=== PATIENT | male | born 1935 | race Two or more races ===

== ENCOUNTER 2020-03-19 17:33 | Inpatient (IN) | payer MEDICARE, OTHER ==
[~2020-03-19] VITALS: Ht 170.2 cm; Wt 76.1 kg
[2020-03-19 18:38] LABS: Basophils # (auto) 0 10 ^3/uL (0-0.2); Eosinophils # (auto) 0 10 ^3/uL (0-0.8); Eosinophils % (auto) 0.2 % (0.0-7.0); Lymphocytes # (auto) 0.6 10 ^3/uL (0.4-5.4); Mean Corpuscular Volume 83.8 fL (80.0-100.0)
[2020-03-19 18:40] LABS: Basophils % (auto) 0.2 % (0.0-2.0); Hematocrit 15.7 % (41.0-53.0); Lymphocytes % (auto) 9.1 % (10.0-50.0); Mean Corpuscular Hemoglobin 24.6 pg (28.0-32.0); Mean Corpuscular Hgb Conc. 29.3 g/dL (32.0-36.0); Monocytes # (auto) 0.4 10 ^3/uL (0-1.3); Monocytes % (auto) 5.2 % (0.0-12.0); Neutrophils # (auto) 5.9 10 ^3/uL (1.6-8.6); Neutrophils % (auto) 85.3 % (37.0-80.0); Nucleated Red Blood Cells % 0.1 %; Platelet Count (auto) 249 10^3/uL (140-450); Red Blood Cells 1.88 10^6/uL (4.5-5.90); Red Cell Distribution Width 17.5 % (11.8-14.3); White Blood Cell 6.9 10^3/uL (4.4-10.8)
[2020-03-19 18:45] LABS: Hemoglobin 4.6 g/dL (13.5-17.5)
[2020-03-19 19:07] LABS: Albumin 3.5 g/dL (3.4-5.0); Calcium 8.7 mg/dL (8.5-10.1); Potassium 5.4 mmol/L (3.5-5.1)
[2020-03-19 19:09] LABS: Lactic Acid w/Reflex 6.1 mmol/L (0.4-2.0)
[2020-03-19 19:14] LABS: BUN/Creatinine Ratio 25.5; Bilirubin, Total 0.3 mg/dL (0.2-1.0); Total Protein 6.5 g/dL (6.4-8.2)
[2020-03-19] MEDS ORDERED: FUROSEMIDE 20 MG/2 ML VIAL IV ONE (20:00)
[2020-03-19 20:01] LABS: INR 1.13 (0.9-1.15); Partial Thromboplastin Time 23.2 sec (23.0-31.2)
[2020-03-19] MEDS ORDERED: PANTOPRAZOLE 40mg/50ML NS AE 50 ML IV ONE (20:45)
[2020-03-19] MEDS ORDERED: PANTOPRAZOLE 40 MG/10 ML VIAL INJ IV ONE (20:45)
[2020-03-19] MEDS ORDERED: SODIUM CHLORIDE 0.9% 1,000 ML IV ONE (21:15)
[2020-03-19 21:33] VITALS: BP 152/54
[2020-03-19] MEDS ORDERED: ONDANSETRON HCL 4 MG/2 ML VIAL IV PRN (21:45)
[2020-03-19] MEDS ORDERED: SODIUM ZIRCONIUM CYCL 10 GM PAK PO ONE (21:45)
[2020-03-19] MEDS ORDERED: NITROGLYCERIN 0.4 MG SL TAB SL PRN (21:45)
[2020-03-19] MEDS ORDERED: DEXTROSE (50%) 50ML SYRG IV PRN (21:45)
[2020-03-19] MEDS ORDERED: MORPHINE SULF INJ 2 MG/ML SYRINGE 1ML IV PRN (21:45)
[2020-03-19 21:47] VITALS: BP 152/62
[2020-03-19] MEDS ORDERED: PIPERACILLIN-TAZOB 3.375GM 100 ML IV ONE (22:00)
[2020-03-19] MEDS ORDERED: VANCOMYCIN 1GM/250ML 250 ML IV ONE (22:00)
[2020-03-19] MEDS ORDERED: levoFLOXacin 250MG 50 ML IV ONE (22:45)
--- NOTE | 2020-03-19 23:05 | NUR ---
Telemetry admit from [facility] admitted to Telemetry unit after SBAR received. Patient oriented to BARBARA TEMPLETON RN primary RN, unit, room, bed, and unit policies regarding patient care and visiting hours. Patient now on continuous telemetry monitoring, tele box # 5 and telemetry reading on arrival to unit is SR 69. Patient placed on bedside oxygen, weighed by bedscale and encouraged to call if they need something. All questions and concerns addressed, patient verbalized understanding. bed in low position and call light within reach.
[2020-03-19 23:10] VITALS: BP 145/74
[2020-03-19 23:38] LABS: Urine Bacteria NONE SEEN /hpf (None Seen); Urine Blood Negative /uL (Negative); Urine Hyaline Cast FEW /lpf (0 - 2); Urine Specific Gravity 1.012 (1.001-1.035); Urine WBC 1 /hpf (0 - 3)
[2020-03-19] MEDS: ATORVASTATIN 20 MG TAB PO SCH (23:39)
--- NOTE | 2020-03-19 23:53 | NUR ---
IV insertion IV access obtained, via clean sterile technique by inserting 20 gauge catheter at left AC after 1 attempt. IV secured properly. No trauma to site. Patient tolerated well.
[2020-03-20] VITALS (16 sets, daily range): BP systolic 142–174; BP diastolic 50–99
--- NOTE | 2020-03-20 00:05 | NUR ---
Transfusion ended 0006 vs taken. no allergic reaction noted or reported by patient. patient reports no signs of sob distress or pain.patient tolerated transfusion well.
[2020-03-20] MEDS: ACCU-CHEK COMFORT CURVE STRIP VI SCH ×4 (00:32→18:15)
[2020-03-20] MEDS: InsuLIN REG 1unit/0.01ml Soln (100units/ml) SC SCH ×4 (00:32→18:00)
--- NOTE | 2020-03-20 00:38 | NUR ---
home medications Called kate john phone number [phone], per patient request. to obtain list of home medication. Message was left as no one answered. will endorse care to dayshift RN if unable to obtain.
--- NOTE | 2020-03-20 01:10 | NUR ---
blood transfusion blood transfusion started. patient was educated on benefits and risks patient verbalized understanding. Patient verbalized understanding on side effects. VS taken.
--- NOTE | 2020-03-20 01:25 | NUR ---
blood transfusion 15min vs taken, no allergic reaction noted or reported. patient reports no signs of sob distress or pain.
--- NOTE | 2020-03-20 02:00 | NUR ---
patient resting in bed denies sob distress or pain.
--- NOTE | 2020-03-20 03:49 | NUR ---
blood transfusion ended. vs taken. patient denies sob distress or pain. no allergic reaction noted or reported by patient.
[2020-03-20 05:38] LABS: Basophils # (auto) 0 10 ^3/uL (0-0.2); Eosinophils # (auto) 0 10 ^3/uL (0-0.8); Mean Corpuscular Volume 81.8 fL (80.0-100.0)
[2020-03-20] MEDS: FUROSEMIDE 20 MG/2 ML VIAL IV SCH ×2 (05:38→18:33)
[2020-03-20 05:42] LABS: Basophils % (auto) 0.1 % (0.0-2.0); Eosinophils % (auto) 0.5 % (0.0-7.0); Hematocrit 18.8 % (41.0-53.0); Lymphocytes % (auto) 15.7 % (10.0-50.0); Mean Corpuscular Hemoglobin 26.8 pg (28.0-32.0); Mean Corpuscular Hgb Conc. 32.8 g/dL (32.0-36.0); Monocytes # (auto) 0.5 10 ^3/uL (0-1.3); Monocytes % (auto) 7.6 % (0.0-12.0); Neutrophils # (auto) 4.9 10 ^3/uL (1.6-8.6); Neutrophils % (auto) 76.1 % (37.0-80.0); Nucleated Red Blood Cells % 0.1 %; Platelet Count (auto) 200 10^3/uL (140-450); Red Cell Distribution Width 17.4 % (11.8-14.3); White Blood Cell 6.4 10^3/uL (4.4-10.8)
[2020-03-20 05:50] LABS: Hemoglobin 6.2 g/dL (13.5-17.5)
[2020-03-20 06:00] LABS: Potassium 4.5 mmol/L (3.5-5.1)
--- NOTE | 2020-03-20 06:04 | NUR ---
Spoke with hospitalist Chandu notified hospitalist of critical hgb 6.2. new orders received orders read back and verified by MELBA Schofield.
[2020-03-20 06:16] LABS: Albumin 3.3 g/dL (3.4-5.0); BUN/Creatinine Ratio 29.5; Bilirubin, Total 0.5 mg/dL (0.2-1.0); Calcium 8.6 mg/dL (8.5-10.1); Total Protein 6.2 g/dL (6.4-8.2)
[2020-03-20] MEDS: PANTOPRAZOLE 40mg/50ML NS AE 50 ML IV SCH ×4 (06:59→22:08)
--- NOTE | 2020-03-20 07:00 | NUR ---
Report given to miryam Rivas. patient is to be transferred to room 294B.
--- NOTE | 2020-03-20 07:01 | NUR ---
Per yinka in tele monitor she will send telebox when available currently in shift change.
--- NOTE | 2020-03-20 07:13 | NUR ---
PATIENT TO ROOM 294B FROM 235 Patient is alert and oriented x4, no signs of distress noted, patient denies pain and shortness of breath. He was updated on the plan of care and verbalized understanding. Bed is locked, in the lowest position, side rails up x2 and call light is in reach. He was encouraged to call for assistance as needed.
--- NOTE | 2020-03-20 07:13 | NUR ---
patient transferred to room 294B denies sob distress or pain. all belongings taken with patient. norma comer notified
--- NOTE | 2020-03-20 08:34 | NUR ---
BLOOD TRANSFUSION STARTED. double checked by two RN per protocol. Starting vitals : temp97.9, HR 64, BP 149.65, RR 17, O2 sat 100% on 2L/min via nasal cannula.
[2020-03-20] MEDS ORDERED: levoFLOXacin 250MG 50 ML IV SCH (10:00)
[2020-03-20] MEDS ORDERED: PANTOPRAZOLE 40 MG/10 ML VIAL INJ IV SCH (10:00)
--- NOTE | 2020-03-20 12:09 | NUR ---
BLOOD TRANSFUSION ENDED 300ml transfused, patient tolerated well.
[2020-03-20 13:58] LABS: Hematocrit 22.5 % (41.0-53.0); Hemoglobin 7.3 g/dL (13.5-17.5)
--- NOTE | 2020-03-20 14:03 | NUR ---
PAGED regarding patient hgb 7.3 post transfusion, MD aware, no new orders received.
--- NOTE | 2020-03-20 14:50 | NUR ---
CALL FROM updated on the patient status. New order for one unit PRBC. Order read back and verified.
[2020-03-20] MEDS ORDERED: IPRATROPIUM BROM 0.5 MG/2.5ML INH SOL NEB PRN (15:00)
[2020-03-20] MEDS ORDERED: ALBUTEROL SULF 2.5 MG/0.5ML(0.5%) NEB SOLN NEB PRN (15:00)
--- NOTE | 2020-03-20 15:23 | NUR ---
PT REQUESTED THAT P.T. EVALUATION BE DONE TOMORROW.
--- NOTE | 2020-03-20 19:30 | NUR ---
OPENING SHIFT NOTE Assumed care of patient who is A&Ox4. Patient's primary language is Upper Sorbian. Currently on 2L NC with no s/s of distress. Denies pain at this time. PIV in right A/C is intact and patent. PRBC currently transfusing. No s/s of allergic reaction noted or reported by patient. PIV in left A/C intact and patent. Currently infusing Protonix as ordered. PIV in right forearm intact and patent. Flushed with 10ml NS. 3+ pitting edema noted to BLE. Bed is in low locked position with side rails up x2. Call light is within reach and patient encouraged to call for assistance when needed. Will continue to monitor for changes PRN.
--- NOTE | 2020-03-20 19:33 | NUR ---
PT ASSESSED FOR PRN MED NEB TX. SPO2 98% ON 2L NC, HR 61. NO RESPIRATORY DISTRESS NOTED. NO TX INDICATED. WILL CONTINUE TO MONITOR.
[2020-03-20] MEDS: SUCRALFATE 1 GM/10 ML ORAL SUSP PO SCH (22:00)
[2020-03-20] MEDS: ATORVASTATIN 20 MG TAB PO SCH (22:00)
--- NOTE | 2020-03-20 22:30 | NUR ---
BLOOD PRESSURE Blood pressure measured and is 174/69 (map: 104), HR: 57. Patient reports a history of HTN, but is unable to recall home medications. Family has been contacted and will obtain a list of medications and send via fax. No antihypertensives ordered at this time. Will notify hospitalist.
--- NOTE | 2020-03-21 | NUR ---
HOSPITALIST Received call from Hospitalist Jaycob Schofield NP. New orders received. Read back and verified. Will follow through.
[2020-03-21] MEDS: ACCU-CHEK COMFORT CURVE STRIP VI SCH ×3 (00:18→12:36)
[2020-03-21] MEDS ORDERED: hydrALAZINE HCL 20 MG/ML VL IV ONE (00:30)
[2020-03-21] MEDS: PANTOPRAZOLE 40mg/50ML NS AE 50 ML IV SCH ×3 (03:05→14:22)
--- NOTE | 2020-03-21 04:37 | NUR ---
IV removal IV to right AC DC'd unintentionally by patient. Catheter fully intact. Pressure dressing applied to site. Patient tolerated well.
[2020-03-21 05:29] VITALS: BP 129/57
[2020-03-21] MEDS: FUROSEMIDE 20 MG/2 ML VIAL IV SCH (05:42)
[2020-03-21] MEDS: InsuLIN REG 1unit/0.01ml Soln (100units/ml) SC SCH ×3 (05:43→12:35)
[2020-03-21] MEDS: SUCRALFATE 1 GM/10 ML ORAL SUSP PO SCH ×4 (06:32→22:28)
[2020-03-21 07:23] LABS: Basophils # (auto) 0 10 ^3/uL (0-0.2); Eosinophils # (auto) 0.2 10 ^3/uL (0-0.8); Hemoglobin 9.4 g/dL (13.5-17.5); Monocytes # (auto) 0.5 10 ^3/uL (0-1.3)
[2020-03-21 07:26] LABS: Basophils % (auto) 0.4 % (0.0-2.0); Eosinophils % (auto) 3.6 % (0.0-7.0); Lymphocytes # (auto) 0.9 10 ^3/uL (0.4-5.4); Lymphocytes % (auto) 17.4 % (10.0-50.0); Mean Corpuscular Hemoglobin 26.6 pg (28.0-32.0); Mean Corpuscular Hgb Conc. 32.4 g/dL (32.0-36.0); Mean Corpuscular Volume 82.2 fL (80.0-100.0); Monocytes % (auto) 10.3 % (0.0-12.0); Neutrophils # (auto) 3.4 10 ^3/uL (1.6-8.6); Neutrophils % (auto) 68.3 % (37.0-80.0); Nucleated Red Blood Cells % 0.4 %; Platelet Count (auto) 219 10^3/uL (140-450); Red Blood Cells 3.53 10^6/uL (4.5-5.90); Red Cell Distribution Width 17.3 % (11.8-14.3)
[2020-03-21 07:43] LABS: Albumin 3.3 g/dL (3.4-5.0); Calcium 8.8 mg/dL (8.5-10.1); Magnesium 1.8 mg/dL (1.6-2.6); Potassium 4.3 mmol/L (3.5-5.1)
[2020-03-21 07:49] LABS: BUN/Creatinine Ratio 20.6; Bilirubin, Total 0.6 mg/dL (0.2-1.0); Total Protein 6.4 g/dL (6.4-8.2)
[2020-03-21 09:00] VITALS: BP 144/54
[2020-03-21 12:47] VITALS: BP 146/58
--- NOTE | 2020-03-21 13:12 | NUR ---
Respiratory note: PT ASSESSED FOR PRN MEDNEB. PT FOUND ON 2 LPM NC. SP02 98%, HR 51, RR 20. PT IN NO DISTRESS AT THIS TIME. NO INDICATION FOR TX. PT AWARE TO HAVE RT PAGED IF SOB.
[2020-03-21] MEDS ORDERED: MAGNESIUM SULFATE 1GM/100ML 100 ML IV ONE (15:00)
[2020-03-21] MEDS ORDERED: BENA40TA7 PO (15:17)
[2020-03-21] MEDS ORDERED: TRAM50TA2 PO (15:17)
[2020-03-21] MEDS ORDERED: AMLO10TA13 PO (15:17)
[2020-03-21] MEDS ORDERED: ATOR40TA52 PO (15:17)
[2020-03-21] MEDS ORDERED: PIOG1TAB37 PO (15:17)
[2020-03-21] MEDS ORDERED: ASPI-543 PO (15:17)
[2020-03-21] MEDS ORDERED: FEBU80TA3 PO (15:17)
--- NOTE | 2020-03-21 15:18 | NUR ---
needed patient home meds. Patient unable to tell us because eddie does not remember. Patient asked me to call his daughter Ruthie. The daughter was able to provide patient's full medication list.
--- NOTE | 2020-03-21 15:40 | NUR ---
Spoke to to let her know that I spoke to patient's daughter who had some questions. She wanted to know if patient will have a colonoscopy. said she is waiting on recommendations. I also mentioned to that patient has been having occasional PVC's,PAC's,Bigeminy,Trigeminy and when he sleep goes to sinus georgi in the high 50's. But other than that he goes back to Sinus Rhythm. aware. Addendum: 03/21/20 at 1852 by YG WRIGHT RN RN also gave me the order to put patient NPO after midnight because it is possible that will do the colonoscopy and tomorrow morning patient might to start bowel prep.
[2020-03-21 16:43] VITALS: BP 163/62
--- NOTE | 2020-03-21 19:55 | NUR ---
OPENING SHIFT NOTE Assumed care of patient who is A&O x4. Currently on 1L NC with no s/s of distress. Denies pain at this time. PIV in left forearm is intact and patent. Flushed with 10ml NS. POC discussed and patient verbalizes understanding. Patient to be kept NPO beginning at 0000 for possible endoscopy tomorrow, 03/22/[address] Cohen. Bed is in low locked position with side rails up x2. Call light is within reach and patient encouraged to call for assistance when needed. Will continue to monitor for changes PRN.
[2020-03-21] MEDS: hydrALAZINE HCL 25 MG TAB PO SCH (22:00)
[2020-03-21] MEDS: PANTOPRAZOLE 40 MG/10 ML VIAL INJ IV SCH (22:28)
[2020-03-21 23:34] VITALS: BP 135/65
[2020-03-22 04:58] LABS: Hematocrit 32.5 % (41.0-53.0); Hemoglobin 10.4 g/dL (13.5-17.5)
[2020-03-22 05:16] LABS: BUN/Creatinine Ratio 16.3; Calcium 8.6 mg/dL (8.5-10.1); Potassium 4.4 mmol/L (3.5-5.1)
[2020-03-22 05:24] VITALS: BP 143/52
[2020-03-22] MEDS: SUCRALFATE 1 GM/10 ML ORAL SUSP PO SCH ×4 (06:04→21:53)
[2020-03-22] MEDS: hydrALAZINE HCL 25 MG TAB PO SCH (06:04)
[2020-03-22 09:00] VITALS: BP 157/51
[2020-03-22] MEDS ORDERED: FUROSEMIDE 20 MG/2 ML VIAL IV SCH (10:00)
[2020-03-22] MEDS: PANTOPRAZOLE 40 MG/10 ML VIAL INJ IV SCH ×2 (10:03→21:53)
[2020-03-22] MEDS ORDERED: SODIUM CHLORIDE LOCK 10 ML ONE (11:07)
[2020-03-22] MEDS ORDERED: LIDOCAINE VISCOUS 2% 15ML UD ONE (11:07)
[2020-03-22] MEDS ORDERED: diphenhdrAMINE HCL 50 MG/1 ML VL ONE (11:08)
--- NOTE | 2020-03-22 11:50 | NUR ---
PT TAKEN TO GI LAB VIA BED. NO S/S OF DISTRESS.
--- NOTE | 2020-03-22 12:18 | NUR ---
Nutrition Assessment Note please see attached link for complete assessment Est Energy needs BW 74 [id number] kcals (23-25 kcal/kgBW), Est Protein needs: 59-74 gms/day (0.8-1.0 gm/kgBW r/t CKD elev RFT). Will continue to monitor and reassess prn. Addendum: 03/22/20 at [address] Amended: Links added.
--- NOTE | 2020-03-22 12:18 | NUR ---
Respiratory note: PT ASSESSED FOR PRN MED NEB. PT FOUND ON 3 LPM SP02 96%, HR 86, RR 20. PT DIMINISHED. NO S/S OF RESPIRATORY DISTRESS. NO INDICATION FOR TREATMENT AT THIS TIME. PT AWARE TO HAVE RT PAGED IF SOB. WILL CONTINUE TO MONITOR.
[2020-03-22] MEDS: fentaNYL CITRATE 100 MCG/2 ML VL ONE ×2 (12:43→12:46)
[2020-03-22] MEDS: MIDAZOLAM HCL 5 MG/ML-1ML VIAL ONE ×2 (12:43→12:46)
--- NOTE | 2020-03-22 13:57 | NUR ---
FWW AT BEDSIDE. DELIVERED BY [facility].
--- NOTE | 2020-03-22 15:45 | NUR ---
Assessment Patient is an 84-year-old male who is alert and oriented. Patient primary language is Samoan. Prior to admission patient lived home with family and functioned with assistance. Patient has a hospital bed and cane for home use. Patient will return home to his prior living arrangements post discharge and family will transport him home. Regarding social service consult for walker and home health safety evaluation, physical therapy, medication management and vitals. Patient advised me to contact his daughter Ruthie in regards of discharge plan. Informed patient he has the right to participate in all discharge planning. Patient verbalized understanding and agreed to discharge plan. Information and choice letter was given to patient daughter Ruthie. Ruthie requested [facility]. Faxed clinical information to [employer] and [facility]. Per Ronni with [facility] patient has been accepted and service to start within 24-48hrs upon d/c day. Per Ruthie Srinivasan order has been received and walker has been deliver to bedside. Addendum: 03/22/20 at 1556 by LISANDRO WILKS Amended: Links added.
[2020-03-22 17:00] VITALS: BP 148/59
--- NOTE | 2020-03-22 17:56 | NUR ---
PATIENT IS AMBULATING 500 FEET. D/C FROM P.T. NURSING TO ASSIST PATIENT NEEDED.
--- NOTE | 2020-03-22 19:22 | NUR ---
Respiratory note: ASSESSED PT FOR PRN MED NEB AT THIS TIME, NO RESP DISTRESS NOTED, NO TX INDICATED. PULSE OX 98% ON RA, HR 83, RR 18, BILATERAL BS CLEAR
--- NOTE | 2020-03-22 19:35 | NUR ---
OPENING SHIFT NOTE Assumed care of patient who is A&O x4. Currently on RA with no s/s of distress. Denies pain at this time. PIV in left wrist is intact and patent. Flushed with 10ml NS. Patient is s/p EGD today with Sybil Cohen. 4WW at bedside. Bed is in low locked position with side rails up x2. Call light is within reach and patient encouraged to call for assistance when needed. Will continue to monitor for changes PRN.
[2020-03-22 23:56] VITALS: BP 142/66
[2020-03-23] VITALS (7 sets, daily range): BP systolic 134–153; BP diastolic 51–67
[2020-03-23] MEDS: SUCRALFATE 1 GM/10 ML ORAL SUSP PO SCH ×4 (06:14→21:20)
[2020-03-23] MEDS: amLODIPine BESYLATE 5 MG TAB PO SCH (10:37)
[2020-03-23] MEDS: PANTOPRAZOLE 40 MG/10 ML VIAL INJ IV SCH ×2 (10:37→21:20)
--- NOTE | 2020-03-23 12:35 | NUR ---
DR. RIVERA IN TO SEE PT.
--- NOTE | 2020-03-23 18:50 | NUR ---
Respiratory note: NO PRN TX GIVEN AT THIS TIME, NOT INDICTAED. PT IS AWAKE, TALKING ON THE PHONE, ALGERIAN SPEAKING ONLY. SPO2 97% ON RA, HR 56, RR 20. BREATH SOUNDS CLEAR/DIMINISHED THROUGHOUT. NO DISTRESS NOTED.
[2020-03-24] MEDS: SUCRALFATE 1 GM/10 ML ORAL SUSP PO SCH ×4 (05:48→21:30)
--- NOTE | 2020-03-24 07:05 | NUR ---
PT RESTED WELL WITH NO DISTRESS OBSERVED;CALL LIGHT IN REACH.
--- NOTE | 2020-03-24 07:45 | NUR ---
Respiratory note: PT ASSESSED FOR PRN MED NEB. PT IS FILIPINO SPEAKING. B/S ARE DIMINISHED. NO S/S OF RESPIRATORY DISTRESS. SPO2 95, HR 99, RR 22. NO INDICATION FOR TREATMENT AT THIS TIME. PT AWARE TO HAVE RT PAGED IF NEEDED.
[2020-03-24 09:00] VITALS: BP 155/68
[2020-03-24] MEDS: amLODIPine BESYLATE 5 MG TAB PO SCH (09:24)
[2020-03-24] MEDS: PANTOPRAZOLE 40 MG/10 ML VIAL INJ IV SCH ×2 (09:26→21:30)
[2020-03-24] MEDS: hydrALAZINE HCL 25 MG TAB PO PRN (09:39)
--- NOTE | 2020-03-24 11:19 | NUR ---
Nutrition Followup Note Wt 74.5kg Pt was sleeping with no family at bedside at time of rounds. Pt is with full liquid diet advanced on 03/22 per Md order. Pt is with a good appetite aeb pt with 100% po intake x 2 days per RN note Est Energy needs BW 74 [id number] kcals (23-25 kcal/kgBW), Est Protein needs: 59-74 gms/day (0.8-1.0 gm/kgBW r/t CKD elev RFT). Will continue to monitor and reassess prn. Labs: BUn 22H, Creat 1.35H, Alb 3.3L, GLUC 140H BM: PT with 2 BMs 03/23 per Rn note Skin: BS 23 low risk, full details in career services officer note PES: Altered nutrition related lab values r.t current chronic medical condition aeb elev RFT MILD HYPOALB Comments 1) Continue to advance diet as medically feasible 2) refer to CDE oN DC 3) continue current plan of care Expected Outcomes/Goals: pt will have improved labs F/u mod 3-5 days
[2020-03-24] MEDS ORDERED: MAGNESIUM CITRATE SOLUTION 300 ML BTL PO ONE (12:30)
[2020-03-24 13:00] VITALS: BP 129/51
[2020-03-24 17:00] VITALS: BP 120/52
--- NOTE | 2020-03-24 19:40 | NUR ---
Opening Shift Note Assumed care of patient, awake and alert. No S/S of distress/SOB or pain. Instructed on POC and to call for assist PRN. Bed in lowest locked position, call light within reach, side rails up x2, fall precautions in place. Will continue to monitor for changes Q1hr and PRN.
[2020-03-24 21:50] VITALS: BP 138/51
[2020-03-25 05:20] VITALS: BP 166/66
[2020-03-25] MEDS: hydrALAZINE HCL 25 MG TAB PO PRN (05:32)
[2020-03-25] MEDS: SUCRALFATE 1 GM/10 ML ORAL SUSP PO SCH ×3 (06:36→16:46)
--- NOTE | 2020-03-25 06:37 | NUR ---
PRN [place] TX NOT INDICATED AT THIS TIME. PT IS AWAKE, ALERT AND ORIENTED. PT ON RA. 96% O2 SATS, HR 62 BPM, RR19 BPM, BS ARE BIBASILARLY DIMINISHED TO AUSCULTATION, SKIN IS WARM AND DRY TO THE TOUCH. RESPIRATION IS EVEN AND NONLABORED. NO SOB OR ANY OTHER RESPIRATORY DISTRESS NOTED. PT INSTRUCTED TO CALL IF [place] TX IS INDICATED. PT VERBALIZED UNDERSTANDING.
--- NOTE | 2020-03-25 07:00 | NUR ---
Opening Shift Note Assumed care of patient, awake and alert. No S/S of distress/SOB or pain. Instructed on POC and to call for assist PRN, will continue to monitor for changes Q1hr and PRN.
[2020-03-25 08:09] LABS: Basophils # (auto) 0 10 ^3/uL (0-0.2); Eosinophils # (auto) 0.2 10 ^3/uL (0-0.8); Lymphocytes # (auto) 0.9 10 ^3/uL (0.4-5.4); Mean Corpuscular Hgb Conc. 31.9 g/dL (32.0-36.0); Monocytes # (auto) 0.4 10 ^3/uL (0-1.3); Neutrophils # (auto) 1.8 10 ^3/uL (1.6-8.6); Neutrophils % (auto) 54.4 % (37.0-80.0)
[2020-03-25 08:11] LABS: Basophils % (auto) 0.9 % (0.0-2.0); Eosinophils % (auto) 5.2 % (0.0-7.0); Hematocrit 28.1 % (41.0-53.0); Lymphocytes % (auto) 26.4 % (10.0-50.0); Mean Corpuscular Hemoglobin 26.2 pg (28.0-32.0); Mean Corpuscular Volume 82.2 fL (80.0-100.0); Monocytes % (auto) 13.1 % (0.0-12.0); Nucleated Red Blood Cells % 0.1 %; Platelet Count (auto) 207 10^3/uL (140-450); Red Blood Cells 3.42 10^6/uL (4.5-5.90); Red Cell Distribution Width 17.4 % (11.8-14.3); White Blood Cell 3.3 10^3/uL (4.4-10.8)
[2020-03-25 08:29] LABS: Albumin 2.7 g/dL (3.4-5.0); Calcium 8.3 mg/dL (8.5-10.1); Potassium 4.3 mmol/L (3.5-5.1)
[2020-03-25 08:34] LABS: BUN/Creatinine Ratio 16.3; Bilirubin, Total 0.4 mg/dL (0.2-1.0); Total Protein 5.6 g/dL (6.4-8.2)
[2020-03-25 08:58] VITALS: BP 146/75
[2020-03-25] MEDS: amLODIPine BESYLATE 5 MG TAB PO SCH (10:48)
[2020-03-25] MEDS: PANTOPRAZOLE 40 MG/10 ML VIAL INJ IV SCH (10:48)
--- NOTE | 2020-03-25 11:50 | NUR ---
ROUNDS Dr Ceballos at bedside for rounds, new orders received and followed through. Translation in Ivorian provided by KATHERINE Reyes. Patient updated onplan of care, verbalized understanding.
[2020-03-25 13:00] VITALS: BP 149/58
[2020-03-25] MEDS ORDERED: SUCR1TAB22 PO (14:30)
[2020-03-25] MEDS ORDERED: AMLO10TA13 PO (14:30)
[2020-03-25] MEDS ORDERED: PANT40TA2 PO (14:30)
[2020-03-25] MEDS ORDERED: FER325T PO (14:41)
[2020-03-25 15:09] VITALS: BP 149/58
[2020-03-25 17:00] VITALS: BP 130/62
--- NOTE | 2020-03-25 17:10 | NUR ---
Discharge instructions given as ordered. Encourage to follow up with PMD as instructed. All questions and concerns addressed. Patient verbalized understanding. Medication reconciliation form completed and copy given to patient. IV removed with catheter intact, pressure dressing applied. Telemetry unit returned to ICU. Patient awaiting daughter Ruthie for transportation.
--- NOTE | 2020-03-25 18:50 | NUR ---
Patient taken to vehicle via wheelchair with all personal belongings, accompanied by staff and family member. No distress noted at time of departure.
== END 2020-03-25 18:20 | disposition home health service (06) | DRG 377 ==
LOC: ER 17:33 → TELE 21:46 → TELE-EAST 23:05 → TELE-WESTW 03-20 08:05
PROVIDERS: ADMIT Nurse Practitioner; ATTEND Internal Medicine Nephrology
PROC: 30230N1 Transfusion of Nonautologous Red Blood Cells into Peripheral Vein, Open Approach (ICD-10-PCS; principal; 2020-03-19)
PROC: 0DB68ZX Excision of Stomach, Via Natural or Artificial Opening Endoscopic, Diagnostic (ICD-10-PCS; 2020-03-22)
PROC: 0DB88ZX Excision of Small Intestine, Via Natural or Artificial Opening Endoscopic, Diagnostic (ICD-10-PCS; 2020-03-22)
DX: K29.81 Duodenitis with bleeding (principal); N17.0 Acute kidney failure with tubular necrosis; I50.33 Acute on chronic diastolic (congestive) heart failure; I13.0 Hypertensive heart and chronic kidney disease with heart failure and stage 1 through stage 4 chronic kidney disease, or unspecified chronic kidney disease; K25.4 Chronic or unspecified gastric ulcer with hemorrhage; D64.9 Anemia, unspecified; N18.30 Chronic kidney disease, stage 3 unspecified; E78.5 Hyperlipidemia, unspecified; E11.22 Type 2 diabetes mellitus with diabetic chronic kidney disease; J44.9 Chronic obstructive pulmonary disease, unspecified; K44.9 Diaphragmatic hernia without obstruction or gangrene; Z20.828 Contact with and (suspected) exposure to other viral communicable diseases; Z82.49 Family history of ischemic heart disease and other diseases of the circulatory system; Z87.891 Personal history of nicotine dependence
CPT/HCPCS: 36415; 36430; 43239; 71045; 74176; 80048; 80053; 80061; 81001; 82962; 83036; 83605; 83735; 83880; 84443; 84484; 85014; 85018; 85025; 85379; 85610; 85730; 86850; 86900; 86901; 86920; 87040; 87086; 87426; 93005; 93306; 96361; 96365; 96367; 96375; 97110; 97116; 97163; 97530; 99291; C9113; G0378; J1815; J2250; J2543

== ENCOUNTER → 2021-01-02 | Outpatient (CLI) | payer MEDICARE, OTHER ==
[~2021-01-02] MED LIST: AMLO-496 PO; ATOR40TA52 PO; BENA40TA8 PO; FEBU80TA3 PO; FER325T PO; PANT40TA2 PO; PIOG1TAB37 PO; SUCR1TAB22 PO; TRAM50TA2 PO
== END | disposition home or self-care (01) ==
LOC: XYW 10:30
PROVIDERS: ATTEND Internal Medicine
DX: I51.7 Cardiomegaly (principal); I70.0 Atherosclerosis of aorta; I10 Essential (primary) hypertension; J98.4 Other disorders of lung
CPT/HCPCS: 93306

== ENCOUNTER → 2024-03-29 | Outpatient (CLI) | payer MEDICARE, OTHER ==
[~2024-03-29] MED LIST changes: -AMLO-496 PO; +AMLO1TAB23 PO; +BENA40TA71 PO; -BENA40TA8 PO; -FEBU80TA3 PO; +FEBU80TA6 PO; -SUCR1TAB22 PO; +SUCR1TAB31 PO
== END | disposition home or self-care (01) ==
LOC: LAB 11:41
PROVIDERS: ATTEND Family Medicine
DX: Z12.11 Encounter for screening for malignant neoplasm of colon (principal)
CPT/HCPCS: 82270

== ENCOUNTER → 2024-04-03 | Outpatient (CLI) | payer MEDICAID, OTHER ==
[2024-04-03 08:50] LABS: Urine Bacteria None Seen /hpf (None Seen)
[2024-04-03 09:24] LABS: Eosinophils % (auto) 2.1 % (0.0-7.0)
[2024-04-03 09:33] LABS: Urine Blood Negative /uL (Negative); Urine Clarity Clear (Clear); Urine Color Yellow (Yellow); Urine Protein, UAD 2+ (Negative); Urine Specific Gravity 1.018 (1.001-1.035); Urine Urobilinogen 2 mg/dL (Negative); Urine WBC 1 /hpf (0 - 3); Urine pH 5.5 (5.0-9.0)
[2024-04-03 09:38] LABS: Basophils # (auto) 0 10 ^3/uL (0-0.2); Basophils % (auto) 0.5 % (0.0-2.0); Eosinophils # (auto) 0.1 10 ^3/uL (0-0.8); Hematocrit 42.4 % (41.0-53.0); Hemoglobin 14.4 g/dL (13.5-17.5); Lymphocytes # (auto) 1.6 10 ^3/uL (0.4-5.4); Lymphocytes % (auto) 31.6 % (10.0-50.0); Mean Corpuscular Volume 97.1 fL (80.0-100.0); Monocytes # (auto) 0.4 10 ^3/uL (0-1.3); Monocytes % (auto) 7.8 % (0.0-12.0); Neutrophils # (auto) 2.9 10 ^3/uL (1.6-8.6); Nucleated Red Blood Cells % 0.1 %; Platelet Count (auto) 211 10^3/uL (140-450); Red Blood Cells 4.36 10^6/uL (4.5-5.90); Red Cell Distribution Width 13.8 % (11.8-14.3)
[2024-04-03 09:47] LABS: Alanine Aminotransferase 15 U/L (7-40); Albumin 4.2 g/dL (3.2-4.8); Alkaline Phosphatase 84 U/L (46-116); Anion Gap 7 (5-15); Aspartate Aminotransferase 19 U/L (13-40); BUN/Creatinine Ratio 13.4 (10.0-20.0); Bilirubin, Total 0.8 mg/dL (0.2-1.0); Blood Urea Nitrogen 17 mg/dL (9-23); Calcium 10.1 mg/dL (8.7-10.4); Carbon Dioxide 25 mmol/L (20-31); Chloride 106 mmol/L (98-107); Cholesterol 149 mg/dL (< 200); Glucose 137 mg/dL (74-106); HDL Cholesterol 71 mg/dL (40-59); LDL Cholesterol 56 mg/dL (< 100); Potassium 4.6 mmol/L (3.5-5.1); Sodium 138 mmol/L (136-145); Triglycerides 121 mg/dL (< 150)
[2024-04-03 11:12] LABS: Uric Acid 6.2 mg/dL (3.7-9.2)
== END | disposition home or self-care (01) ==
LOC: LAB 08:36
PROVIDERS: ATTEND Family Medicine
DX: I10 Essential (primary) hypertension (principal); Z12.5 Encounter for screening for malignant neoplasm of prostate; E78.5 Hyperlipidemia, unspecified; F03.90 Unspecified dementia, unspecified severity, without behavioral disturbance, psychotic disturbance, mood disturbance, and anxiety; Z87.39 Personal history of other diseases of the musculoskeletal system and connective tissue
CPT/HCPCS: 36415; 80053; 80061; 81001; 83036; 83540; 84153; 84443; 84550; 85025

== ENCOUNTER → 2024-08-09 | Outpatient (CLI) | payer MEDICAID, OTHER ==
[2024-08-09 07:57] LABS: Urine Bacteria None Seen /hpf (None Seen)
[2024-08-09 08:15] LABS: Urine Blood TRACE /uL (Negative); Urine Clarity Clear (Clear); Urine Color Light-Yellow (Yellow); Urine Protein, UAD 1+ (Negative); Urine Specific Gravity 1.017 (1.001-1.035); Urine Squamous Epithelial Cell FEW /hpf (<5); Urine Urobilinogen Normal (Negative); Urine WBC < 1 /HPF (0-3); Urine pH 5.5 (5.0-9.0)
[2024-08-09 08:27] LABS: Basophils # (auto) 0 10 ^3/uL (0-0.2); Basophils % (auto) 0.6 % (0.0-2.0); Eosinophils # (auto) 0.1 10 ^3/uL (0-0.8); Eosinophils % (auto) 2.1 % (0.0-7.0); Hematocrit 39.5 % (41.0-53.0); Hemoglobin 13.6 g/dL (13.5-17.5); Lymphocytes # (auto) 1.8 10 ^3/uL (0.4-5.4); Lymphocytes % (auto) 34.4 % (10.0-50.0); Mean Corpuscular Hemoglobin 33.4 pg (28.0-32.0); Mean Corpuscular Hgb Conc. 34.5 g/dL (32.0-36.0); Monocytes # (auto) 0.4 10 ^3/uL (0-1.3); Monocytes % (auto) 8.6 % (0.0-12.0); Neutrophils # (auto) 2.8 10 ^3/uL (1.6-8.6); Neutrophils % (auto) 54.3 % (37.0-80.0); Platelet Count (auto) 173 10^3/uL (140-450); Red Blood Cells 4.08 10^6/uL (4.5-5.90); Red Cell Distribution Width 13.9 % (11.8-14.3); White Blood Cell 5.1 10^3/uL (4.4-10.8)
[2024-08-09 08:32] LABS: Alanine Aminotransferase 13 U/L (7-40); Albumin 4.7 g/dL (3.2-4.8); Alkaline Phosphatase 86 U/L (46-116); Anion Gap 10 (5-15); Aspartate Aminotransferase 15 U/L (13-40); BUN/Creatinine Ratio 15.2 (10.0-20.0); Blood Urea Nitrogen 19 mg/dL (9-23); Calcium 10.1 mg/dL (8.7-10.4); Carbon Dioxide 21 mmol/L (20-31); Chloride 105 mmol/L (98-107); Cholesterol 151 mg/dL (< 200); LDL Cholesterol 56 mg/dL (< 100); Potassium 4.9 mmol/L (3.5-5.1); Total Protein 7.5 g/dL (5.7-8.2); Triglycerides 112 mg/dL (< 150)
[2024-08-09 08:33] LABS: Bilirubin, Total 0.9 mg/dL (0.2-1.0)
[2024-08-09 08:34] LABS: Glucose 141 mg/dL (74-106); HDL Cholesterol 74 mg/dL (40-59); Sodium 136 mmol/L (136-145)
== END | disposition home or self-care (01) ==
LOC: LAB 07:40
PROVIDERS: ATTEND Family Medicine
DX: Z12.5 Encounter for screening for malignant neoplasm of prostate (principal); Z12.11 Encounter for screening for malignant neoplasm of colon; I13.0 Hypertensive heart and chronic kidney disease with heart failure and stage 1 through stage 4 chronic kidney disease, or unspecified chronic kidney disease; E11.22 Type 2 diabetes mellitus with diabetic chronic kidney disease; N18.31 Chronic kidney disease, stage 3a; I50.9 Heart failure, unspecified; E11.21 Type 2 diabetes mellitus with diabetic nephropathy; E11.65 Type 2 diabetes mellitus with hyperglycemia; F03.90 Unspecified dementia, unspecified severity, without behavioral disturbance, psychotic disturbance, mood disturbance, and anxiety; Z87.39 Personal history of other diseases of the musculoskeletal system and connective tissue
CPT/HCPCS: 36415; 80053; 80061; 81001; 82043; 83036; 84153; 84443; 84550; 85025

== ENCOUNTER 2024-11-28 08:32 | Outpatient (CLI) | payer MEDICAID, OTHER ==
[2024-11-28 10:00] LABS: Alanine Aminotransferase 11 U/L (7-40); Albumin 4.5 g/dL (3.2-4.8); Alkaline Phosphatase 74 U/L (46-116); Anion Gap 12 (5-15); BUN/Creatinine Ratio 15.6 (10.0-20.0); Blood Urea Nitrogen 21 mg/dL (9-23); Calcium 10.2 mg/dL (8.7-10.4); Chloride 105 mmol/L (98-107); Sodium 137 mmol/L (136-145); Total Protein 7.2 g/dL (5.7-8.2); Triglycerides 110 mg/dL (< 150)
[2024-11-28 10:01] LABS: Bilirubin, Total 1.1 mg/dL (0.2-1.0); Cholesterol 146 mg/dL (< 200); HDL Cholesterol 58 mg/dL (40-59)
[2024-11-28 10:02] LABS: Carbon Dioxide 20 mmol/L (20-31); Glucose 117 mg/dL (74-106); Potassium 5.2 mmol/L (3.5-5.1)
== END 2024-11-28 17:00 | disposition home or self-care (01) ==
LOC: LAB 08:32
PROVIDERS: ATTEND Family Medicine
DX: I12.9 Hypertensive chronic kidney disease with stage 1 through stage 4 chronic kidney disease, or unspecified chronic kidney disease (principal); E11.22 Type 2 diabetes mellitus with diabetic chronic kidney disease; N18.9 Chronic kidney disease, unspecified; E11.65 Type 2 diabetes mellitus with hyperglycemia; E78.2 Mixed hyperlipidemia
CPT/HCPCS: 36415; 80053; 80061; 83036

== ENCOUNTER 2025-03-08 08:12 | Outpatient (CLI) | payer MEDICAID, OTHER ==
[2025-03-08 09:15] LABS: Anion Gap 11 (5-15); Calcium 9.7 mg/dL (8.7-10.4); Carbon Dioxide 25 mmol/L (20-31); Chloride 104 mmol/L (98-107); Potassium 4.9 mmol/L (3.5-5.1); Sodium 140 mmol/L (136-145)
[2025-03-08 09:21] LABS: BUN/Creatinine Ratio 12.8 (10.0-20.0); Blood Urea Nitrogen 19 mg/dL (9-23); Glucose 124 mg/dL (74-106); Microalb/Creat Ratio, Urine 186.0; Triglycerides 116 mg/dL (< 150)
[2025-03-08 09:23] LABS: Cholesterol 166 mg/dL (< 200)
[2025-03-08 09:25] LABS: HDL Cholesterol 68 mg/dL (40-59)
== END 2025-03-08 17:00 | disposition home or self-care (01) ==
LOC: LAB 08:12
PROVIDERS: ATTEND Family Medicine
DX: I13.0 Hypertensive heart and chronic kidney disease with heart failure and stage 1 through stage 4 chronic kidney disease, or unspecified chronic kidney disease (principal); E11.22 Type 2 diabetes mellitus with diabetic chronic kidney disease; I50.9 Heart failure, unspecified; N18.9 Chronic kidney disease, unspecified; E11.65 Type 2 diabetes mellitus with hyperglycemia; E78.2 Mixed hyperlipidemia
CPT/HCPCS: 36415; 80048; 80061; 82043; 82570; 83036